=== PATIENT | female | born 1945 | race Caucasian/White ===

== ENCOUNTER 2017-06-01 12:58 | Emergency (ER) | payer MEDICARE, OTHER ==
[2017-06-01 15:07] LABS: BASOPHILS 0.3 % (0-2); EOSINOPHILS 0.3 % (0-7); HEMATOCRIT 41.8 % (36.0-48.0); HEMOGLOBIN 14.4 g/dL (12-16); IMMATURE GRANULOCYTES 0.4 % (0-5); MCH 32.3 pg (26.0-34.0); MCHC 34.4 g/dL (31.0-37.0); MCV 93.7 fL (80.0-100.0); MEAN PLATELET VOLUME 10.6 fL (7.4-10.4); MONOCYTES 7.1 % (2-11); NEUTROPHILS 72.9 % (40-80); PLATELET COUNT 283 10x3/uL (130-400); RBC 4.46 10x6/uL (4.00-5.40); RDW 14.2 % (11.5-14.5); WBC 9.3 10x3/uL (4.8-10.8)
[2017-06-01 15:31] LABS: ANION GAP 19.8 mmol/L (8-16); BILIRUBIN - TOTAL 0.45 mg/dL (0.2-1.3); CALCIUM 11.1 mg/dL (8.5-10.1); CREATININE - SERUM 1.5 mg/dL (0.6-1.3); POTASSIUM - SERUM 3.8 mmol/L (3.5-5.1); PROTEIN - SERUM 9.5 g/dL (6.4-8.2)
== END 2017-06-01 19:24 | disposition home or self-care (01) ==
LOC: D.ER 12:58
PROVIDERS: Emergency Medicine
DX: C50.912 Malignant neoplasm of unspecified site of left female breast (principal); M89.9 Disorder of bone, unspecified

== ENCOUNTER → 2017-06-28 14:31 | Outpatient (CLI) | payer MEDICARE, OTHER ==
[2017-06-28 15:32] LABS: BASOPHILS 0.1 % (0-2); EOSINOPHILS 0 % (0-7); HEMATOCRIT 29.3 % (36.0-48.0); HEMOGLOBIN 9.7 g/dL (12-16); IMMATURE GRANULOCYTES 0.4 % (0-5); LYMPHOCYTES 13.9 % (15-50); MCH 32.1 pg (26.0-34.0); MCHC 33.1 g/dL (31.0-37.0); MEAN PLATELET VOLUME 9.2 fL (7.4-10.4); NEUTROPHILS 79.6 % (40-80); RBC 3.02 10x6/uL (4.00-5.40); WBC 9.9 10x3/uL (4.8-10.8)
[2017-06-28 15:33] LABS: PLATELET COUNT 459 10x3/uL (130-400)
[2017-06-28 15:46] LABS: INR 1.12 (0.85-1.17)
== END | disposition home or self-care (01) ==
LOC: D.LABREF 14:31
PROVIDERS: Internal Medicine Hematology & Oncology
DX: M84.551D Pathological fracture in neoplastic disease, right femur, subsequent encounter for fracture with routine healing (principal); C79.51 Secondary malignant neoplasm of bone